=== PATIENT | female | born 1995 | race American Indian/Alaskan Native ===

== ENCOUNTER 2023-03-29 14:56 | Emergency (ER) | payer OTHER ==
[~2023-03-29] VITALS: Ht 165.1 cm; Wt 102.3 kg
[2023-03-29 15:01] VITALS: BP 127/78; PULSE 100; RESP 18; TEMP 98.4
[2023-03-29 16:03] LABS: COVID AG,FIA SOURCE NASAL SWAB
[2023-03-29 16:25] LABS: SARS-COV2 (COVID) ANTIGEN,FIA Negative (Negative)
[2023-03-29] MEDS ORDERED: IBUPROFEN 400 MG TABLET PO ONE (16:30)
[2023-03-29] MEDS ORDERED: DOXY-354 PO (17:09)
[2023-03-29] MEDS ORDERED: LIDOCAINE/PF 1% 2 ML VIAL IM ONE (17:15)
[2023-03-29] MEDS ORDERED: DOXYCYCLINE HYCLATE 100 MG TABLET PO ONE (17:15)
[2023-03-29] MEDS ORDERED: CefTRIAXone SODIUM 1 GM/VIAL IM ONE (17:15)
== END 2023-03-29 17:37 | disposition home or self-care (01) ==
LOC: EMS 15:11
DX: A64 Unspecified sexually transmitted disease (principal); J02.9 Acute pharyngitis, unspecified; J45.909 Unspecified asthma, uncomplicated; Z20.822 Contact with and (suspected) exposure to COVID-19
CPT/HCPCS: 99283; 87426; 87430; 96372; J0696; J3490

== ENCOUNTER 2025-06-26 12:35 | Emergency (ER) | payer MEDICAID, OTHER ==
[~2025-06-26] VITALS: Ht 162.6 cm; Wt 127.3 kg
[~2025-06-26 12:35] MED LIST: DOXY-354 PO
[2025-06-26 12:40] VITALS: TEMP 98.4
[2025-06-26 13:08] LABS: COVID AG,FIA SOURCE NASAL SWAB
[2025-06-26 13:29] LABS: SARS-COV2 (COVID) ANTIGEN,FIA Negative (Negative)
[2025-06-26 13:31] LABS: INFLUENZA TYPE A NEGATIVE FOR TYPE A (NEGATIVE); INFLUENZA TYPE B NEGATIVE FOR TYPE B (NEGATIVE)
[2025-06-26 15:45] LABS: APPEARANCE,URINE HAZY (CLEAR); GLUCOSE, URINE (UA) NEGATIVE (NEGATIVE); LEUKOCYTE ESTERASE ,URINE MODERATE (NEGATIVE); NITRATE,URINE NEGATIVE (NEGATIVE); OCCULT BLOOD,URINE NEGATIVE (NEGATIVE); SPECIFIC GRAVITIY, URINE 1.030 (1.003-1.030)
[2025-06-26] MEDS: CefTRIAXone SODIUM 1 GM/VIAL IM ONE (15:53)
[2025-06-26] MEDS: LIDOCAINE/PF 1% 2 ML VIAL IM ONE (15:53)
[2025-06-26] MEDS: AZITHROMYCIN 500 MG TABLET PO ONE (15:53)
[2025-06-26 16:02] LABS: SQUAMOUS EPITHELIAL CELL,UR Moderate /LPF (None Seen)
[2025-06-26] MEDS ORDERED: BENZ1LOZ50 PO (16:23)
[2025-06-26] MEDS ORDERED: AMOX500C2 PO (16:23)
[2025-06-26 17:26] VITALS: BP 115/74; PULSE 95; RESP 18; O2SAT 98
== END 2025-06-26 17:28 | disposition home or self-care (01) ==
LOC: EMS 12:35
DX: J02.0 Streptococcal pharyngitis (principal); J45.909 Unspecified asthma, uncomplicated; Z20.822 Contact with and (suspected) exposure to COVID-19
CPT/HCPCS: 99284; 87426; 81001; 87086; 87430; 87804; 87491; 87591; 96372; J0456; J0696; J3490